=== PATIENT | male | born 1955 | race Caucasian/White ===

== ENCOUNTER 2021-01-25 12:08 | Inpatient (IN) | payer MEDICARE, OTHER ==
[~2021-01-25] VITALS: Ht 167.6 cm; Wt 72.6 kg
[2021-01-25 12:53] LABS: HEMATOCRIT 42.4 % (42-54); MEAN CORPUSCULAR HEMOGLOBIN 30.3 pg (27.0-33.0); MEAN CORPUSCULAR HGB CONC 33.5 g/dL (32.0-36.0); MEAN CORPUSCULAR VOLUME 90.4 fL (79-99); RED BLOOD CELL COUNT(AUTO) 4.69 MIL/uL (4.50-6.20); RED CELL DISTRIBUTION WIDTH 13.3 % (11.0-15.5); WHITE BLOOD COUNT (AUTO) 9.5 K/uL (4.8-10.8)
[2021-01-25 12:56] LABS: ABG BASE EXCESS 0.8 mmol/L (-2.0-3.0); ABG HCO3 23.3 mmol/L (21.0-28.0); ABG OXYGEN SATURATION 85.4 % (95.0-99.0); ABG PCO2 32 mmHg (35-48)
[2021-01-25] MEDS ORDERED: ALBUTEROL INHALER 90MCG/INH IH PRN (13:00)
[2021-01-25] MEDS ORDERED: 0.9%NACL 1000ML 1,000 ML IV SCH (13:00)
[2021-01-25 13:02] LABS: CREATININE 1.5 mg/dL (0.5-1.5); POTASSIUM 3.9 mmol/L (3.5-5.1)
[2021-01-25 13:06] LABS: ALBUMIN 2.8 g/dL (3.5-5.0); BILIRUBIN,TOTAL 0.4 mg/dL (0.2-1.0); TOTAL PROTEIN, SERUM 7.3 g/dL (6.0-8.3)
[2021-01-25 13:14] LABS: CRP QUANTITATIVE 184.5 mg/L (0.00-9.0)
[2021-01-25 13:32] VITALS: BP 101/66
[2021-01-25] MEDS: ACETAMINOPHEN WITH CODEINE 1 TAB TAB PO PRN (13:32)
[2021-01-25] MEDS ORDERED: ALPR1TAB7 PO (14:26)
[2021-01-25] MEDS ORDERED: THYR300T PO (14:26)
[2021-01-25] MEDS ORDERED: ACETAMINOPHEN 325 MG TAB PO PRN (14:30)
[2021-01-25] MEDS ORDERED: MAG/ALUM/SIMETH 30 ML UDCUP PO PRN (14:30)
[2021-01-25] MEDS ORDERED: LACTULOSE 20 GM/30 ML UDCUP PO PRN (14:30)
[2021-01-25] MEDS ORDERED: DIPHENHYDRAMINE HCL 25 MG CAPSULE PO PRN (14:30)
[2021-01-25] MEDS ORDERED: NITROGLYCERIN 0.4 MG SL TAB SL PRN (14:30)
[2021-01-25] MEDS ORDERED: ACETAMINOPHEN WITH CODEINE 1 TAB TAB PO PRN (14:30)
[2021-01-25] MEDS: DEXAMETHASONE SOD PHOSPHATE 4 MG/ML 1ML VIAL IVP SCH (16:09)
[2021-01-25] MEDS: CEFTRIAXONE 1G VIAL IV SCH (16:09)
[2021-01-25] MEDS: 0.9%NACL 1000ML 1,000 ML IV SCH (16:09)
[2021-01-25] MEDS: DOXYCYCLINE 100MG+NS 250ML 250 ML IV SCH (16:09)
[2021-01-25] MEDS ORDERED: PHARMACY COMMUNICATION MISC SCH (18:00)
[2021-01-25 18:12] VITALS: BP 108/72
[2021-01-25] MEDS ORDERED: REMDESIVIR (EUA) 520 200 MG in 0.9% NACL 250ML 250 ML IV ONE (20:00)
[2021-01-25] MEDS ORDERED: COMPOUND IV REFRIGERATED 1 EACH IVSOLN MISC PRN (20:00)
[2021-01-25] MEDS: FAMOTIDINE 20MG VIAL IV SCH (21:18)
[2021-01-25] MEDS: ALPRAZOLAM 1 MG TAB PO SCH (21:19)
[2021-01-25] MEDS: ENOXAPARIN SODIUM 40 MG/0.4 ML SYRINGE SQ SCH (22:07)
[2021-01-25 22:30] VITALS: BP 100/69
[2021-01-26 02:13] VITALS: BP 99/66
[2021-01-26] MEDS: 0.9%NACL 1000ML 1,000 ML IV SCH ×2 (02:27→14:32)
[2021-01-26] MEDS: DOXYCYCLINE 100MG+NS 250ML 250 ML IV SCH ×2 (02:27→14:30)
[2021-01-26 03:47] LABS: APPEARANCE,URINE Clear (CLEAR); BILIRUBIN,URINE Negative (NEGATIVE); COLOR,URINE Dark Yellow (YELLOW); GLUCOSE, URINE (UA) Negative (NEGATIVE); KETONES,URINE 15 mg/dL (NEGATIVE); LEUKOCYTE ESTERASE ,URINE Negative (NEGATIVE); NITRATE,URINE Negative (NEGATIVE); OCCULT BLOOD,URINE Negative (NEGATIVE); PROTEIN,URINE POS 2+ mg/dL (NEGATIVE)
[2021-01-26 04:01] VITALS: BP 105/65
[2021-01-26 04:03] LABS: BACTERIA,URINE Few /HPF (None Seen); RBC,URINE 0-1 /HPF (0-1); SQUAMOUS EPITHELIAL CELL,UR 0-2 /HPF (0-2)
[2021-01-26] MEDS: REMDESIVIR LABS MISC SCH (06:34)
[2021-01-26] MEDS: GUAIFENESIN-DM 200/20 MG 10 ML PO PRN ×2 (06:34→16:46)
[2021-01-26] MEDS: ACETAMINOPHEN WITH CODEINE 1 TAB TAB PO PRN ×2 (06:35→16:47)
[2021-01-26 06:50] LABS: BASOPHILS % (AUTO) 0.2 % (0.0-5.0); HEMATOCRIT 39.1 % (42-54); LYMPHOCYTES % (AUTO) 6.2 % (21.0-51.0); MEAN CORPUSCULAR HEMOGLOBIN 29.9 pg (27.0-33.0); MEAN CORPUSCULAR VOLUME 90.7 fL (79-99); MONOCYTES % (AUTO) 2.4 % (3.0-13.0); NEUTROPHILS % (AUTO) 90.2 % (40.0-77.0); PLATELET COUNT (AUTO) 420 K/uL (130-400); RED BLOOD CELL COUNT(AUTO) 4.31 MIL/uL (4.50-6.20); RED CELL DISTRIBUTION WIDTH 13.5 % (11.0-15.5); WHITE BLOOD COUNT (AUTO) 10.2 K/uL (4.8-10.8)
[2021-01-26 06:52] VITALS: BP 99/62
[2021-01-26 07:02] LABS: INR 0.98 (0.85-1.15); PROTHROMBIN TIME 10.7 SEC (9.6-11.6)
[2021-01-26 07:03] LABS: PARTIAL THROMBOPLASTIN TIME 31.9 SEC (26.3-35.5)
[2021-01-26 08:00] VITALS: BP 93/62
[2021-01-26] MEDS ORDERED: ENOXAPARIN SODIUM 40 MG/0.4 ML SYRINGE SQ SCH (09:00)
[2021-01-26 09:06] LABS: ALBUMIN 2.4 g/dL (3.5-5.0); BILIRUBIN,TOTAL 0.3 mg/dL (0.2-1.0); CREATININE 1.3 mg/dL (0.5-1.5); POTASSIUM 4.9 mmol/L (3.5-5.1)
[2021-01-26] MEDS: ASCORBIC ACID 500 MG TAB PO SCH (09:55)
[2021-01-26] MEDS: BARICITINIB (EUA) 2 MG TABLET PO SCH (09:55)
[2021-01-26] MEDS: ZINC SULFATE 220 CAPSULE PO SCH (09:56)
[2021-01-26] MEDS: ENOXAPARIN SODIUM 40 MG/0.4 ML SYRINGE SQ SCH ×2 (09:56→20:45)
[2021-01-26] MEDS: CEFTRIAXONE 1G VIAL IV SCH (14:31)
[2021-01-26] MEDS: DEXAMETHASONE SOD PHOSPHATE 4 MG/ML 1ML VIAL IVP SCH (14:31)
[2021-01-26] MEDS ORDERED: BUDESONIDE 0.5 MG/2 ML INH IH SCH (18:00)
[2021-01-26] MEDS ORDERED: FLUTICASONE/VILANTEROL 1 EACH AER.POW.BA IH SCH (19:00)
[2021-01-26 20:00] VITALS: BP 92/58
[2021-01-26] MEDS: ALPRAZOLAM 1 MG TAB PO SCH (20:44)
[2021-01-26] MEDS: FAMOTIDINE 20MG VIAL IV SCH (20:44)
[2021-01-26] MEDS: REMDESIVIR (EUA) 520 100 MG in 0.9% NACL 250ML 250 ML IV SCH (20:44)
[2021-01-26] MEDS ORDERED: TIMO1DRO OU (22:25)
[2021-01-26 23:12] VITALS: BP 112/62
[2021-01-27] MEDS ORDERED: 0.9% NACL 250ML 250 ML ONE (01:24)
[2021-01-27] MEDS: ACETAMINOPHEN WITH CODEINE 1 TAB TAB PO PRN ×2 (01:28→11:56)
[2021-01-27] MEDS: GUAIFENESIN-DM 200/20 MG 10 ML PO PRN (01:30)
[2021-01-27] MEDS: DOXYCYCLINE 100MG+NS 250ML 250 ML IV SCH ×2 (02:10→13:56)
[2021-01-27 04:16] VITALS: BP 100/64
[2021-01-27] MEDS: REMDESIVIR LABS MISC SCH (06:00)
[2021-01-27 06:16] LABS: BASOPHILS % (AUTO) 0.1 % (0.0-5.0); HEMATOCRIT 38.1 % (42-54); LYMPHOCYTES % (AUTO) 10.6 % (21.0-51.0); MEAN CORPUSCULAR HGB CONC 32.5 g/dL (32.0-36.0); MEAN CORPUSCULAR VOLUME 92.3 fL (79-99); MONOCYTES % (AUTO) 4.6 % (3.0-13.0); NEUTROPHILS % (AUTO) 83.5 % (40.0-77.0); PLATELET COUNT (AUTO) 473 K/uL (130-400); RED BLOOD CELL COUNT(AUTO) 4.13 MIL/uL (4.50-6.20); RED CELL DISTRIBUTION WIDTH 14.1 % (11.0-15.5); WHITE BLOOD COUNT (AUTO) 9.5 K/uL (4.8-10.8)
[2021-01-27 06:32] LABS: ALBUMIN 2.3 g/dL (3.5-5.0); BILIRUBIN,TOTAL 0.3 mg/dL (0.2-1.0); CREATININE 1.2 mg/dL (0.5-1.5); CRP QUANTITATIVE 95.1 mg/L (0.00-9.0); POTASSIUM 4.2 mmol/L (3.5-5.1); TOTAL PROTEIN, SERUM 6.4 g/dL (6.0-8.3)
[2021-01-27 07:15] VITALS: BP 100/68
[2021-01-27] MEDS: TIMOLOL MALEATE OU SCH ×2 (09:00→21:48)
[2021-01-27] MEDS: ASCORBIC ACID 500 MG TAB PO SCH (09:52)
[2021-01-27] MEDS: ZINC SULFATE 220 CAPSULE PO SCH (09:52)
[2021-01-27] MEDS: 0.9%NACL 1000ML 1,000 ML IV SCH (09:52)
[2021-01-27] MEDS: ENOXAPARIN SODIUM 40 MG/0.4 ML SYRINGE SQ SCH ×2 (09:53→21:39)
[2021-01-27] MEDS: FLUTICASONE/VILANTEROL 1 EACH AER.POW.BA IH SCH (10:07)
[2021-01-27 12:43] VITALS: BP 106/62
[2021-01-27] MEDS: BARICITINIB (EUA) 2 MG TABLET PO SCH (13:56)
[2021-01-27] MEDS: DEXAMETHASONE SOD PHOSPHATE 4 MG/ML 1ML VIAL IVP SCH (13:57)
[2021-01-27] MEDS: CEFTRIAXONE 1G VIAL IV SCH (13:57)
[2021-01-27 15:15] VITALS: BP 123/80
[2021-01-27] MEDS ORDERED: HYDROMORPHONE 0.5 MG SYG (0.5MG/0.5ML) IVP PRN (17:00)
[2021-01-27 20:29] VITALS: BP 117/74
[2021-01-27] MEDS: BUSPIRONE HCL 5 MG TABLET PO SCH (21:39)
[2021-01-27] MEDS: ALPRAZOLAM 1 MG TAB PO SCH (21:39)
[2021-01-27] MEDS: FAMOTIDINE 20MG VIAL IV SCH (21:40)
[2021-01-27] MEDS: REMDESIVIR (EUA) 520 100 MG in 0.9% NACL 250ML 250 ML IV SCH (21:55)
[2021-01-27 23:45] VITALS: BP 107/69
[2021-01-28 04:52] VITALS: BP 111/77
[2021-01-28 04:52] LABS: BASOPHILS % (AUTO) 0.1 % (0.0-5.0); HEMATOCRIT 35.9 % (42-54); MEAN CORPUSCULAR HGB CONC 32.3 g/dL (32.0-36.0); MEAN CORPUSCULAR VOLUME 92.8 fL (79-99); MONOCYTES % (AUTO) 4.5 % (3.0-13.0); NEUTROPHILS % (AUTO) 88.4 % (40.0-77.0); PLATELET COUNT (AUTO) 509 K/uL (130-400); RED BLOOD CELL COUNT(AUTO) 3.87 MIL/uL (4.50-6.20); RED CELL DISTRIBUTION WIDTH 14.4 % (11.0-15.5); WHITE BLOOD COUNT (AUTO) 11.5 K/uL (4.8-10.8)
[2021-01-28] MEDS: DOXYCYCLINE 100MG+NS 250ML 250 ML IV SCH ×2 (05:06→14:37)
[2021-01-28 05:16] LABS: ALBUMIN 2.2 g/dL (3.5-5.0); BILIRUBIN,TOTAL 0.4 mg/dL (0.2-1.0); CREATININE 1.1 mg/dL (0.5-1.5); CRP QUANTITATIVE 46.7 mg/L (0.00-9.0); POTASSIUM 4.7 mmol/L (3.5-5.1); TOTAL PROTEIN, SERUM 5.9 g/dL (6.0-8.3)
[2021-01-28] MEDS: REMDESIVIR LABS MISC SCH (06:00)
[2021-01-28 08:05] VITALS: BP 143/76
[2021-01-28] MEDS: TIMOLOL MALEATE OU SCH ×2 (09:00→20:31)
[2021-01-28] MEDS: FLUTICASONE/VILANTEROL 1 EACH AER.POW.BA IH SCH (09:00)
[2021-01-28] MEDS: BARICITINIB (EUA) 2 MG TABLET PO SCH (09:16)
[2021-01-28] MEDS: ZINC SULFATE 220 CAPSULE PO SCH (09:16)
[2021-01-28] MEDS: BUSPIRONE HCL 5 MG TABLET PO SCH ×2 (09:16→20:30)
[2021-01-28] MEDS: ASCORBIC ACID 500 MG TAB PO SCH (09:16)
[2021-01-28] MEDS: ENOXAPARIN SODIUM 40 MG/0.4 ML SYRINGE SQ SCH ×2 (09:17→20:31)
[2021-01-28 11:46] VITALS: BP 141/73
[2021-01-28] MEDS: DEXAMETHASONE SOD PHOSPHATE 4 MG/ML 1ML VIAL IVP SCH (14:38)
[2021-01-28] MEDS: CEFTRIAXONE 1G VIAL IV SCH (14:38)
[2021-01-28] MEDS: ACETAMINOPHEN WITH CODEINE 1 TAB TAB PO PRN ×3 (15:41→22:50)
[2021-01-28 16:18] VITALS: BP 105/68
[2021-01-28 20:00] VITALS: BP 111/65
[2021-01-28] MEDS: ALPRAZOLAM 1 MG TAB PO SCH (20:30)
[2021-01-28] MEDS: FAMOTIDINE 20MG VIAL IV SCH (20:30)
[2021-01-28] MEDS: REMDESIVIR (EUA) 520 100 MG in 0.9% NACL 250ML 250 ML IV SCH (20:30)
[2021-01-28] MEDS: GUAIFENESIN-DM 200/20 MG 10 ML PO PRN (20:59)
[2021-01-29] VITALS (7 sets, daily range): BP systolic 99–140; BP diastolic 61–82
[2021-01-29] MEDS: DOXYCYCLINE 100MG+NS 250ML 250 ML IV SCH ×2 (01:13→14:57)
[2021-01-29 04:48] LABS: ALBUMIN 2.2 g/dL (3.5-5.0); BILIRUBIN,DIRECT 0.2 mg/dL (0.0-0.3); BILIRUBIN,TOTAL 0.5 mg/dL (0.2-1.0); CREATININE 1.2 mg/dL (0.5-1.5)
[2021-01-29] MEDS: REMDESIVIR LABS MISC SCH (06:00)
[2021-01-29] MEDS: ZINC SULFATE 220 CAPSULE PO SCH (08:56)
[2021-01-29] MEDS: ASCORBIC ACID 500 MG TAB PO SCH (08:56)
[2021-01-29] MEDS: BARICITINIB (EUA) 2 MG TABLET PO SCH (08:56)
[2021-01-29] MEDS: BUSPIRONE HCL 5 MG TABLET PO SCH ×2 (08:56→20:25)
[2021-01-29] MEDS: ENOXAPARIN SODIUM 40 MG/0.4 ML SYRINGE SQ SCH ×2 (08:57→20:26)
[2021-01-29] MEDS: FLUTICASONE/VILANTEROL 1 EACH AER.POW.BA IH SCH (08:57)
[2021-01-29] MEDS: TIMOLOL MALEATE OU SCH ×2 (09:00→20:37)
[2021-01-29] MEDS: DEXAMETHASONE SOD PHOSPHATE 4 MG/ML 1ML VIAL IVP SCH (14:57)
[2021-01-29] MEDS: CEFTRIAXONE 1G VIAL IV SCH (14:57)
[2021-01-29] MEDS: SOLU-MEDROL 40MG VIAL IVP SCH (20:25)
[2021-01-29] MEDS: FAMOTIDINE 20MG VIAL IV SCH (20:25)
[2021-01-29] MEDS: ALPRAZOLAM 1 MG TAB PO SCH (20:25)
[2021-01-29] MEDS: REMDESIVIR (EUA) 520 100 MG in 0.9% NACL 250ML 250 ML IV SCH (20:26)
[2021-01-29] MEDS: GUAIFENESIN-DM 200/20 MG 10 ML PO PRN (21:22)
[2021-01-30] MEDS: DOXYCYCLINE 100MG+NS 250ML 250 ML IV SCH ×2 (02:18→14:36)
[2021-01-30 04:00] VITALS: BP 117/75
[2021-01-30 06:37] LABS: HEMATOCRIT 37.1 % (42-54); MEAN CORPUSCULAR HEMOGLOBIN 30.2 pg (27.0-33.0); MEAN CORPUSCULAR HGB CONC 33.4 g/dL (32.0-36.0); MEAN CORPUSCULAR VOLUME 90.5 fL (79-99); RED BLOOD CELL COUNT(AUTO) 4.1 MIL/uL (4.50-6.20); RED CELL DISTRIBUTION WIDTH 14.2 % (11.0-15.5); WHITE BLOOD COUNT (AUTO) 8.9 K/uL (4.8-10.8)
[2021-01-30 06:47] LABS: MAGNESIUM 2.3 mg/dL (1.80-2.40); POTASSIUM 4.3 mmol/L (3.5-5.1)
[2021-01-30 08:00] VITALS: BP 103/66
[2021-01-30] MEDS: GUAIFENESIN-DM 200/20 MG 10 ML PO PRN (08:13)
[2021-01-30] MEDS: SOLU-MEDROL 40MG VIAL IVP SCH ×2 (08:13→19:56)
[2021-01-30] MEDS: ENOXAPARIN SODIUM 40 MG/0.4 ML SYRINGE SQ SCH ×2 (08:14→19:56)
[2021-01-30] MEDS: BUSPIRONE HCL 5 MG TABLET PO SCH (08:14)
[2021-01-30] MEDS: ZINC SULFATE 220 CAPSULE PO SCH (08:14)
[2021-01-30] MEDS: FLUTICASONE/VILANTEROL 1 EACH AER.POW.BA IH SCH (08:14)
[2021-01-30] MEDS: ASCORBIC ACID 500 MG TAB PO SCH (08:14)
[2021-01-30] MEDS: BARICITINIB (EUA) 2 MG TABLET PO SCH (08:14)
[2021-01-30] MEDS: TIMOLOL MALEATE OU SCH ×2 (08:15→20:23)
[2021-01-30] MEDS: ACETAMINOPHEN WITH CODEINE 1 TAB TAB PO PRN (10:00)
[2021-01-30 12:00] VITALS: BP 126/80
[2021-01-30] MEDS: ALPRAZOLAM 1 MG TAB PO PRN ×2 (13:06→20:22)
[2021-01-30] MEDS: CEFTRIAXONE 1G VIAL IV SCH (14:36)
[2021-01-30 16:00] VITALS: BP 121/75
[2021-01-30] MEDS: BUDESONIDE 0.5 MG/2 ML INH IH SCH (18:00)
[2021-01-30] MEDS: FAMOTIDINE 20MG VIAL IV SCH (19:56)
[2021-01-30 20:16] VITALS: BP 101/68
[2021-01-30 23:35] VITALS: BP 116/79
[2021-01-31] MEDS: BUDESONIDE 0.5 MG/2 ML INH IH SCH (03:26)
[2021-01-31] MEDS: DOXYCYCLINE 100MG+NS 250ML 250 ML IV SCH ×2 (03:26→13:50)
[2021-01-31 04:00] VITALS: BP 115/72
[2021-01-31 05:39] LABS: CRP QUANTITATIVE 120.9 mg/L (0.00-9.0); POTASSIUM 4.2 mmol/L (3.5-5.1)
[2021-01-31 08:00] VITALS: BP 117/80
[2021-01-31] MEDS: ZINC SULFATE 220 CAPSULE PO SCH (08:45)
[2021-01-31] MEDS: SOLU-MEDROL 40MG VIAL IVP SCH ×2 (08:45→20:52)
[2021-01-31] MEDS: ASCORBIC ACID 500 MG TAB PO SCH (08:46)
[2021-01-31] MEDS: BARICITINIB (EUA) 2 MG TABLET PO SCH (08:46)
[2021-01-31] MEDS: ENOXAPARIN SODIUM 40 MG/0.4 ML SYRINGE SQ SCH (08:46)
[2021-01-31] MEDS: GLUTATHIONE PO SCH (09:00)
[2021-01-31] MEDS: FLUTICASONE/VILANTEROL 1 EACH AER.POW.BA IH SCH (09:30)
[2021-01-31] MEDS: TIMOLOL MALEATE OU SCH ×2 (09:30→21:00)
[2021-01-31] MEDS: GUAIFENESIN-DM 200/20 MG 10 ML PO PRN ×2 (10:07→16:44)
[2021-01-31 11:58] VITALS: BP 109/72
[2021-01-31] MEDS: CEFTRIAXONE 1G VIAL IV SCH (13:50)
[2021-01-31 16:33] VITALS: BP 129/68
[2021-01-31] MEDS: ACETAMINOPHEN WITH CODEINE 1 TAB TAB PO PRN (16:57)
[2021-01-31 20:00] VITALS: BP 94/62
[2021-01-31] MEDS: FAMOTIDINE 20MG VIAL IV SCH (20:52)
[2021-01-31] MEDS: ENOXAPARIN SODIUM 80 MG/0.8 ML SQ SCH (20:54)
[2021-01-31] MEDS: ALPRAZOLAM 1 MG TAB PO PRN (23:51)
[2021-01-31 23:54] VITALS: BP 119/73
[2021-02-01] MEDS: ACETAMINOPHEN WITH CODEINE 1 TAB TAB PO PRN ×3 (00:02→19:47)
[2021-02-01] MEDS: GUAIFENESIN-DM 200/20 MG 10 ML PO PRN (00:07)
[2021-02-01] MEDS: DOXYCYCLINE 100MG+NS 250ML 250 ML IV SCH ×2 (03:13→14:05)
[2021-02-01 04:00] VITALS: BP 150/51
[2021-02-01 05:21] LABS: BASOPHILS % (AUTO) 0.1 % (0.0-5.0); HEMATOCRIT 33.6 % (42-54); LYMPHOCYTES % (AUTO) 3.3 % (21.0-51.0); MEAN CORPUSCULAR HEMOGLOBIN 30.1 pg (27.0-33.0); MEAN CORPUSCULAR HGB CONC 33.3 g/dL (32.0-36.0); MEAN CORPUSCULAR VOLUME 90.3 fL (79-99); MONOCYTES % (AUTO) 4.4 % (3.0-13.0); NEUTROPHILS % (AUTO) 91.5 % (40.0-77.0); PLATELET COUNT (AUTO) 354 K/uL (130-400); RED BLOOD CELL COUNT(AUTO) 3.72 MIL/uL (4.50-6.20); RED CELL DISTRIBUTION WIDTH 14.2 % (11.0-15.5); WHITE BLOOD COUNT (AUTO) 12.8 K/uL (4.8-10.8)
[2021-02-01 05:31] LABS: POTASSIUM 4.5 mmol/L (3.5-5.1)
[2021-02-01 07:35] VITALS: BP 89/52
[2021-02-01] MEDS: SOLU-MEDROL 40MG VIAL IVP SCH ×2 (08:05→19:44)
[2021-02-01] MEDS: ZINC SULFATE 220 CAPSULE PO SCH (08:06)
[2021-02-01] MEDS: BARICITINIB (EUA) 2 MG TABLET PO SCH (08:06)
[2021-02-01] MEDS: ENOXAPARIN SODIUM 80 MG/0.8 ML SQ SCH ×2 (08:06→19:47)
[2021-02-01] MEDS: ASCORBIC ACID 500 MG TAB PO SCH (08:17)
[2021-02-01] MEDS: TIMOLOL MALEATE OU SCH ×2 (09:00→21:00)
[2021-02-01] MEDS: GLUTATHIONE PO SCH (09:00)
[2021-02-01] MEDS: FLUTICASONE/VILANTEROL 1 EACH AER.POW.BA IH SCH (09:07)
[2021-02-01 11:53] VITALS: BP 114/74
[2021-02-01] MEDS: GUAIFENESIN-DM 200/20 MG 10 ML PO SCH ×3 (14:01→21:00)
[2021-02-01] MEDS: ALPRAZOLAM 1 MG TAB PO PRN (14:02)
[2021-02-01] MEDS: CEFTRIAXONE 1G VIAL IV SCH (14:05)
[2021-02-01 15:40] VITALS: BP 98/66
[2021-02-01] MEDS: FAMOTIDINE 20MG VIAL IV SCH (19:44)
[2021-02-01 20:00] VITALS: BP 103/65
[2021-02-01] MEDS ORDERED: ALPRAZOLAM 1 MG TAB ONE (22:38)
[2021-02-01] MEDS ORDERED: ALPRAZOLAM 1 MG TAB PO ONE (23:00)
[2021-02-02] VITALS: BP 107/72
[2021-02-02] MEDS: DOXYCYCLINE 100MG+NS 250ML 250 ML IV SCH ×2 (01:11→15:08)
[2021-02-02] MEDS: GUAIFENESIN-DM 200/20 MG 10 ML PO SCH ×6 (01:11→19:57)
[2021-02-02 04:00] VITALS: BP 119/69
[2021-02-02 05:22] LABS: BASOPHILS % (AUTO) 0.1 % (0.0-5.0); HEMATOCRIT 33.2 % (42-54); LYMPHOCYTES % (AUTO) 3.3 % (21.0-51.0); MEAN CORPUSCULAR HEMOGLOBIN 30.5 pg (27.0-33.0); MEAN CORPUSCULAR HGB CONC 33.4 g/dL (32.0-36.0); MEAN CORPUSCULAR VOLUME 91.2 fL (79-99); MONOCYTES % (AUTO) 4.8 % (3.0-13.0); PLATELET COUNT (AUTO) 364 K/uL (130-400); RED BLOOD CELL COUNT(AUTO) 3.64 MIL/uL (4.50-6.20); RED CELL DISTRIBUTION WIDTH 14.2 % (11.0-15.5); WHITE BLOOD COUNT (AUTO) 12.4 K/uL (4.8-10.8)
[2021-02-02 05:35] LABS: BILIRUBIN,TOTAL 0.5 mg/dL (0.2-1.0); CREATININE 1.1 mg/dL (0.5-1.5); POTASSIUM 4.5 mmol/L (3.5-5.1); TOTAL PROTEIN, SERUM 5.7 g/dL (6.0-8.3)
[2021-02-02 08:00] VITALS: BP 116/73
[2021-02-02] MEDS: GLUTATHIONE PO SCH (09:00)
[2021-02-02] MEDS: TIMOLOL MALEATE OU SCH ×2 (09:00→19:40)
[2021-02-02] MEDS: FLUTICASONE/VILANTEROL 1 EACH AER.POW.BA IH SCH (09:00)
[2021-02-02] MEDS: SOLU-MEDROL 40MG VIAL IVP SCH ×2 (09:43→19:39)
[2021-02-02] MEDS: BUSPIRONE HCL 5 MG TABLET PO SCH ×2 (09:43→19:39)
[2021-02-02] MEDS: BARICITINIB (EUA) 2 MG TABLET PO SCH (09:44)
[2021-02-02] MEDS: ASCORBIC ACID 500 MG TAB PO SCH (09:44)
[2021-02-02] MEDS: ENOXAPARIN SODIUM 80 MG/0.8 ML SQ SCH ×2 (09:45→19:38)
[2021-02-02] MEDS: ACETAMINOPHEN WITH CODEINE 1 TAB TAB PO PRN ×3 (09:46→19:39)
[2021-02-02 12:05] VITALS: BP 99/71
[2021-02-02] MEDS: ZINC SULFATE 220 CAPSULE PO SCH (15:08)
[2021-02-02] MEDS: CEFTRIAXONE 1G VIAL IV SCH (15:08)
[2021-02-02 16:01] VITALS: BP_SYST 115; BP_SYST 118; BP_DIAS 57; BP_DIAS 60
[2021-02-02] MEDS: FAMOTIDINE 20MG VIAL IV SCH (19:39)
[2021-02-02 19:59] VITALS: BP 97/64
[2021-02-03] VITALS: BP 112/71
[2021-02-03] MEDS: GUAIFENESIN-DM 200/20 MG 10 ML PO SCH ×6 (00:44→20:24)
[2021-02-03] MEDS: DOXYCYCLINE 100MG+NS 250ML 250 ML IV SCH ×2 (02:15→13:16)
[2021-02-03 04:00] VITALS: BP 109/66
[2021-02-03] MEDS: ACETAMINOPHEN WITH CODEINE 1 TAB TAB PO PRN ×2 (04:44→16:22)
[2021-02-03 05:28] LABS: BASOPHILS % (AUTO) 0.2 % (0.0-5.0); HEMATOCRIT 35.4 % (42-54); LYMPHOCYTES % (AUTO) 4.3 % (21.0-51.0); MEAN CORPUSCULAR HEMOGLOBIN 30.3 pg (27.0-33.0); MEAN CORPUSCULAR HGB CONC 33.3 g/dL (32.0-36.0); NEUTROPHILS % (AUTO) 90.3 % (40.0-77.0); PLATELET COUNT (AUTO) 365 K/uL (130-400); RED BLOOD CELL COUNT(AUTO) 3.89 MIL/uL (4.50-6.20); RED CELL DISTRIBUTION WIDTH 13.9 % (11.0-15.5); WHITE BLOOD COUNT (AUTO) 11.4 K/uL (4.8-10.8)
[2021-02-03 06:12] LABS: ALBUMIN 2.1 g/dL (3.5-5.0); BILIRUBIN,TOTAL 0.5 mg/dL (0.2-1.0); CREATININE 1.1 mg/dL (0.5-1.5); TOTAL PROTEIN, SERUM 5.8 g/dL (6.0-8.3)
[2021-02-03] MEDS: ASCORBIC ACID 500 MG TAB PO SCH (07:38)
[2021-02-03] MEDS: ZINC SULFATE 220 CAPSULE PO SCH (07:38)
[2021-02-03] MEDS: BUSPIRONE HCL 5 MG TABLET PO SCH ×2 (07:38→16:23)
[2021-02-03] MEDS: ENOXAPARIN SODIUM 80 MG/0.8 ML SQ SCH ×2 (07:39→20:33)
[2021-02-03] MEDS: SOLU-MEDROL 40MG VIAL IVP SCH ×2 (07:39→20:22)
[2021-02-03] MEDS: TIMOLOL MALEATE OU SCH ×2 (07:58→20:36)
[2021-02-03] MEDS: GLUTATHIONE PO SCH (07:58)
[2021-02-03 08:00] VITALS: BP 106/67
[2021-02-03] MEDS: BARICITINIB (EUA) 2 MG TABLET PO SCH (08:40)
[2021-02-03 11:25] VITALS: BP 101/62
[2021-02-03] MEDS: CEFTRIAXONE 1G VIAL IV SCH (13:16)
[2021-02-03 16:50] VITALS: BP 102/61
[2021-02-03 19:40] VITALS: BP 104/69
[2021-02-03] MEDS: FAMOTIDINE 20MG VIAL IV SCH (20:22)
[2021-02-03] MEDS: ZOLPIDEM TARTRATE 5 MG TAB PO SCH (20:22)
[2021-02-04] VITALS (7 sets, daily range): BP systolic 95–132; BP diastolic 57–82
[2021-02-04] MEDS ORDERED: 0.9% NACL 250ML 250 ML ONE (00:49)
[2021-02-04] MEDS: DOXYCYCLINE 100MG+NS 250ML 250 ML IV SCH (00:59)
[2021-02-04] MEDS: BUSPIRONE HCL 5 MG TABLET PO SCH ×3 (00:59→16:25)
[2021-02-04] MEDS: GUAIFENESIN-DM 200/20 MG 10 ML PO SCH ×6 (00:59→20:52)
[2021-02-04] MEDS: ONDANSETRON 4MG INJ IV PRN ×2 (03:37→20:57)
[2021-02-04 04:34] LABS: BASOPHILS % (AUTO) 0.1 % (0.0-5.0); HEMATOCRIT 34.4 % (42-54); LYMPHOCYTES % (AUTO) 4.3 % (21.0-51.0); MEAN CORPUSCULAR HEMOGLOBIN 30.4 pg (27.0-33.0); MEAN CORPUSCULAR VOLUME 89.4 fL (79-99); MONOCYTES % (AUTO) 4.6 % (3.0-13.0); NEUTROPHILS % (AUTO) 89.7 % (40.0-77.0); PLATELET COUNT (AUTO) 364 K/uL (130-400); RED BLOOD CELL COUNT(AUTO) 3.85 MIL/uL (4.50-6.20); RED CELL DISTRIBUTION WIDTH 13.6 % (11.0-15.5); WHITE BLOOD COUNT (AUTO) 13.2 K/uL (4.8-10.8)
[2021-02-04] MEDS: ACETAMINOPHEN WITH CODEINE 1 TAB TAB PO PRN ×2 (04:34→16:26)
[2021-02-04 04:59] LABS: ALBUMIN 2.2 g/dL (3.5-5.0); BILIRUBIN,TOTAL 0.4 mg/dL (0.2-1.0); CREATININE 1.1 mg/dL (0.5-1.5); POTASSIUM 4.1 mmol/L (3.5-5.1); TOTAL PROTEIN, SERUM 5.7 g/dL (6.0-8.3)
[2021-02-04] MEDS: ZINC SULFATE 220 CAPSULE PO SCH (07:30)
[2021-02-04] MEDS: BARICITINIB (EUA) 2 MG TABLET PO SCH (07:30)
[2021-02-04] MEDS: ASCORBIC ACID 500 MG TAB PO SCH (07:30)
[2021-02-04] MEDS: SOLU-MEDROL 40MG VIAL IVP SCH (07:31)
[2021-02-04] MEDS: TIMOLOL MALEATE OU SCH ×2 (07:32→19:51)
[2021-02-04] MEDS: ENOXAPARIN SODIUM 80 MG/0.8 ML SQ SCH ×2 (07:32→19:48)
[2021-02-04] MEDS: GLUTATHIONE PO SCH (08:42)
[2021-02-04] MEDS: DOXYCYCLINE HYCLATE 100 MG TABLET PO SCH ×2 (13:32→19:47)
[2021-02-04] MEDS: CEFTRIAXONE 1G VIAL IV SCH (13:32)
[2021-02-04] MEDS: DEXAMETHASONE SOD PHOSPHATE 4 MG/ML 1ML VIAL IVP SCH (17:47)
[2021-02-04] MEDS: FAMOTIDINE 20MG VIAL IV SCH (19:46)
[2021-02-04] MEDS: ZOLPIDEM TARTRATE 5 MG TAB PO SCH (19:47)
[2021-02-05] MEDS: BUSPIRONE HCL 5 MG TABLET PO SCH ×4 (00:35→23:51)
[2021-02-05] MEDS: GUAIFENESIN-DM 200/20 MG 10 ML PO SCH ×7 (00:35→23:51)
[2021-02-05 03:47] VITALS: BP 112/69
[2021-02-05 04:51] LABS: BASOPHILS % (AUTO) 0.1 % (0.0-5.0); EOSINOPHILS % (AUTO) 0.1 % (0.0-8.0); HEMATOCRIT 35.1 % (42-54); LYMPHOCYTES % (AUTO) 6.4 % (21.0-51.0); MEAN CORPUSCULAR HEMOGLOBIN 29.9 pg (27.0-33.0); MEAN CORPUSCULAR HGB CONC 32.8 g/dL (32.0-36.0); MEAN CORPUSCULAR VOLUME 91.2 fL (79-99); MONOCYTES % (AUTO) 7.1 % (3.0-13.0); NEUTROPHILS % (AUTO) 84.7 % (40.0-77.0); PLATELET COUNT (AUTO) 357 K/uL (130-400); RED BLOOD CELL COUNT(AUTO) 3.85 MIL/uL (4.50-6.20); RED CELL DISTRIBUTION WIDTH 13.7 % (11.0-15.5); WHITE BLOOD COUNT (AUTO) 12.8 K/uL (4.8-10.8)
[2021-02-05 05:12] LABS: ALBUMIN 2.2 g/dL (3.5-5.0); BILIRUBIN,TOTAL 0.5 mg/dL (0.2-1.0); POTASSIUM 4.1 mmol/L (3.5-5.1); TOTAL PROTEIN, SERUM 5.6 g/dL (6.0-8.3)
[2021-02-05] MEDS: DEXAMETHASONE SOD PHOSPHATE 4 MG/ML 1ML VIAL IVP SCH (05:31)
[2021-02-05] MEDS: ASCORBIC ACID 500 MG TAB PO SCH (07:59)
[2021-02-05] MEDS: BARICITINIB (EUA) 2 MG TABLET PO SCH (07:59)
[2021-02-05] MEDS: DOXYCYCLINE HYCLATE 100 MG TABLET PO SCH ×2 (07:59→08:18)
[2021-02-05] MEDS: ZINC SULFATE 220 CAPSULE PO SCH (07:59)
[2021-02-05] MEDS: TIMOLOL MALEATE OU SCH ×2 (08:01→20:33)
[2021-02-05] MEDS: GLUTATHIONE PO SCH (08:01)
[2021-02-05] MEDS: ENOXAPARIN SODIUM 80 MG/0.8 ML SQ SCH ×2 (08:01→20:33)
[2021-02-05 08:21] VITALS: BP 119/69
[2021-02-05 11:00] VITALS: BP 111/70
[2021-02-05] MEDS ORDERED: PHARMACY COMMUNICATION MISC SCH (13:00)
[2021-02-05] MEDS: CEFTRIAXONE 1G VIAL IV SCH (13:43)
[2021-02-05 16:00] VITALS: BP 100/68
[2021-02-05] MEDS: LACTOBACILLUS RHAMNOSUS GG 1 EACH CAP.SPRINK PO SCH ×2 (16:43→20:33)
[2021-02-05] MEDS ORDERED: DEXAMETHASONE SOD PHOSPHATE 4 MG/ML 1ML VIAL IVP SCH (17:30)
[2021-02-05] MEDS ORDERED: SOLU-MEDROL 40MG VIAL ONE (19:22)
[2021-02-05 20:00] VITALS: BP 106/68
[2021-02-05] MEDS: FAMOTIDINE 20MG VIAL IV SCH (20:30)
[2021-02-05] MEDS: SOLU-MEDROL 40MG VIAL IVP SCH (20:32)
[2021-02-05] MEDS: ZOLPIDEM TARTRATE 5 MG TAB PO SCH (20:33)
[2021-02-05] MEDS: ACETAMINOPHEN WITH CODEINE 1 TAB TAB PO PRN (21:13)
[2021-02-06] VITALS: BP_SYST 102; BP_SYST 127; BP_DIAS 68; BP_DIAS 75
[2021-02-06 04:00] VITALS: BP 90/51
[2021-02-06] MEDS: GUAIFENESIN-DM 200/20 MG 10 ML PO SCH ×5 (04:12→20:52)
[2021-02-06 08:00] VITALS: BP 96/56
[2021-02-06] MEDS: LACTOBACILLUS RHAMNOSUS GG 1 EACH CAP.SPRINK PO SCH ×4 (08:27→20:52)
[2021-02-06] MEDS: SOLU-MEDROL 40MG VIAL IVP SCH ×2 (08:27→20:52)
[2021-02-06] MEDS: ASCORBIC ACID 500 MG TAB PO SCH (08:27)
[2021-02-06] MEDS: ZINC SULFATE 220 CAPSULE PO SCH (08:27)
[2021-02-06] MEDS: BUSPIRONE HCL 5 MG TABLET PO SCH ×2 (08:27→16:20)
[2021-02-06] MEDS: BARICITINIB (EUA) 2 MG TABLET PO SCH (08:27)
[2021-02-06] MEDS: ENOXAPARIN SODIUM 80 MG/0.8 ML SQ SCH ×2 (08:28→20:55)
[2021-02-06] MEDS: GLUTATHIONE PO SCH (09:00)
[2021-02-06] MEDS: TIMOLOL MALEATE OU SCH ×2 (09:17→20:55)
[2021-02-06 12:00] VITALS: BP 105/68
[2021-02-06] MEDS: CEFTRIAXONE 1G VIAL IV SCH (13:22)
[2021-02-06 16:00] VITALS: BP 105/66
[2021-02-06 20:00] VITALS: BP 108/65
[2021-02-06] MEDS: ZOLPIDEM TARTRATE 5 MG TAB PO SCH (20:52)
[2021-02-06] MEDS: FAMOTIDINE 20MG VIAL IV SCH (20:52)
[2021-02-07] VITALS: BP 93/66
[2021-02-07] MEDS: GUAIFENESIN-DM 200/20 MG 10 ML PO SCH ×6 (00:52→20:06)
[2021-02-07] MEDS: BUSPIRONE HCL 5 MG TABLET PO SCH ×3 (00:58→18:20)
[2021-02-07] MEDS: ACETAMINOPHEN WITH CODEINE 1 TAB TAB PO PRN ×2 (02:08→20:07)
[2021-02-07 04:00] VITALS: BP 119/69
[2021-02-07 05:48] LABS: BASOPHILS % (AUTO) 0.1 % (0.0-5.0); HEMATOCRIT 38.5 % (42-54); LYMPHOCYTES % (AUTO) 6.2 % (21.0-51.0); MEAN CORPUSCULAR HEMOGLOBIN 30.6 pg (27.0-33.0); MEAN CORPUSCULAR HGB CONC 33.5 g/dL (32.0-36.0); MEAN CORPUSCULAR VOLUME 91.2 fL (79-99); MONOCYTES % (AUTO) 4.3 % (3.0-13.0); NEUTROPHILS % (AUTO) 88.1 % (40.0-77.0); PLATELET COUNT (AUTO) 415 K/uL (130-400); RED BLOOD CELL COUNT(AUTO) 4.22 MIL/uL (4.50-6.20); WHITE BLOOD COUNT (AUTO) 12.5 K/uL (4.8-10.8)
[2021-02-07 06:14] LABS: CRP QUANTITATIVE 11.9 mg/L (0.00-9.0); POTASSIUM 4.1 mmol/L (3.5-5.1)
[2021-02-07 08:00] VITALS: BP 121/64
[2021-02-07] MEDS: SOLU-MEDROL 40MG VIAL IVP SCH ×2 (08:35→20:06)
[2021-02-07] MEDS: LACTOBACILLUS RHAMNOSUS GG 1 EACH CAP.SPRINK PO SCH ×4 (08:35→20:06)
[2021-02-07] MEDS: BARICITINIB (EUA) 2 MG TABLET PO SCH (08:35)
[2021-02-07] MEDS: ZINC SULFATE 220 CAPSULE PO SCH (08:35)
[2021-02-07] MEDS: ASCORBIC ACID 500 MG TAB PO SCH (08:35)
[2021-02-07] MEDS: ENOXAPARIN SODIUM 80 MG/0.8 ML SQ SCH ×2 (08:39→20:10)
[2021-02-07] MEDS: GLUTATHIONE PO SCH (08:42)
[2021-02-07] MEDS: TIMOLOL MALEATE OU SCH ×2 (08:43→21:00)
[2021-02-07 12:00] VITALS: BP 88/56
[2021-02-07 16:00] VITALS: BP 92/60
[2021-02-07 20:00] VITALS: BP 98/63
[2021-02-07] MEDS: ZOLPIDEM TARTRATE 5 MG TAB PO SCH (20:06)
[2021-02-07] MEDS: FAMOTIDINE 20MG VIAL IV SCH (20:06)
[2021-02-08] VITALS (7 sets, daily range): BP systolic 90–123; BP diastolic 49–75
[2021-02-08] MEDS: GUAIFENESIN-DM 200/20 MG 10 ML PO SCH ×6 (01:51→20:51)
[2021-02-08] MEDS: BUSPIRONE HCL 5 MG TABLET PO SCH ×3 (01:54→16:43)
[2021-02-08] MEDS: ACETAMINOPHEN WITH CODEINE 1 TAB TAB PO PRN ×2 (03:15→20:51)
[2021-02-08 04:48] LABS: BASOPHILS % (AUTO) 0.1 % (0.0-5.0); HEMATOCRIT 34.8 % (42-54); LYMPHOCYTES % (AUTO) 5.8 % (21.0-51.0); MEAN CORPUSCULAR HEMOGLOBIN 30.1 pg (27.0-33.0); MEAN CORPUSCULAR HGB CONC 32.5 g/dL (32.0-36.0); MEAN CORPUSCULAR VOLUME 92.8 fL (79-99); MONOCYTES % (AUTO) 3.5 % (3.0-13.0); NEUTROPHILS % (AUTO) 89.5 % (40.0-77.0); PLATELET COUNT (AUTO) 334 K/uL (130-400); RED BLOOD CELL COUNT(AUTO) 3.75 MIL/uL (4.50-6.20); RED CELL DISTRIBUTION WIDTH 14.3 % (11.0-15.5); WHITE BLOOD COUNT (AUTO) 10.7 K/uL (4.8-10.8)
[2021-02-08 04:54] LABS: POTASSIUM 4.7 mmol/L (3.5-5.1)
[2021-02-08] MEDS: GLUTATHIONE PO SCH (09:00)
[2021-02-08] MEDS: TIMOLOL MALEATE OU SCH ×2 (09:00→21:00)
[2021-02-08] MEDS: ASCORBIC ACID 500 MG TAB PO SCH (09:48)
[2021-02-08] MEDS: ZINC SULFATE 220 CAPSULE PO SCH (09:48)
[2021-02-08] MEDS: BARICITINIB (EUA) 2 MG TABLET PO SCH (09:48)
[2021-02-08] MEDS: LACTOBACILLUS RHAMNOSUS GG 1 EACH CAP.SPRINK PO SCH ×4 (09:48→20:53)
[2021-02-08] MEDS: ENOXAPARIN SODIUM 40 MG/0.4 ML SYRINGE SQ SCH ×2 (09:48→20:53)
[2021-02-08] MEDS: SOLU-MEDROL 40MG VIAL IVP SCH ×2 (09:49→20:55)
[2021-02-08] MEDS: PANTOPRAZOLE 40 MG TAB DR PO SCH (09:54)
[2021-02-08] MEDS: MIDODRINE HCL 5 MG TABLET PO SCH ×2 (13:16→20:53)
[2021-02-08] MEDS: ZOLPIDEM TARTRATE 5 MG TAB PO SCH (21:00)
[2021-02-09] MEDS: GUAIFENESIN-DM 200/20 MG 10 ML PO SCH ×5 (01:00→16:39)
[2021-02-09] MEDS: BUSPIRONE HCL 5 MG TABLET PO SCH ×3 (01:00→16:39)
[2021-02-09 04:00] VITALS: BP 104/71
[2021-02-09] MEDS: PANTOPRAZOLE 40 MG TAB DR PO SCH (06:26)
[2021-02-09 07:23] VITALS: BP 92/60
[2021-02-09 11:20] VITALS: BP 100/75
[2021-02-09] MEDS: LACTOBACILLUS RHAMNOSUS GG 1 EACH CAP.SPRINK PO SCH ×3 (11:20→16:39)
[2021-02-09] MEDS: BARICITINIB (EUA) 2 MG TABLET PO SCH (11:21)
[2021-02-09] MEDS: GLUTATHIONE PO SCH (11:22)
[2021-02-09] MEDS: TIMOLOL MALEATE OU SCH (11:23)
[2021-02-09] MEDS: ZINC SULFATE 220 CAPSULE PO SCH (11:23)
[2021-02-09] MEDS: SOLU-MEDROL 40MG VIAL IVP SCH (11:23)
[2021-02-09] MEDS: ASCORBIC ACID 500 MG TAB PO SCH (11:24)
[2021-02-09] MEDS: MIDODRINE HCL 5 MG TABLET PO SCH ×2 (11:24→14:41)
[2021-02-09] MEDS: ENOXAPARIN SODIUM 40 MG/0.4 ML SYRINGE SQ SCH (11:27)
[2021-02-09] MEDS: ACETAMINOPHEN WITH CODEINE 1 TAB TAB PO PRN (11:28)
[2021-02-09 12:03] LABS: BASOPHILS % (AUTO) 0.2 % (0.0-5.0); EOSINOPHILS % (AUTO) 0.1 % (0.0-8.0); HEMATOCRIT 37.9 % (42-54); LYMPHOCYTES % (AUTO) 4.9 % (21.0-51.0); MEAN CORPUSCULAR HEMOGLOBIN 30.3 pg (27.0-33.0); MEAN CORPUSCULAR HGB CONC 32.2 g/dL (32.0-36.0); MONOCYTES % (AUTO) 3.6 % (3.0-13.0); NEUTROPHILS % (AUTO) 90.1 % (40.0-77.0); PLATELET COUNT (AUTO) 406 K/uL (130-400); RED BLOOD CELL COUNT(AUTO) 4.03 MIL/uL (4.50-6.20); RED CELL DISTRIBUTION WIDTH 14.6 % (11.0-15.5); WHITE BLOOD COUNT (AUTO) 12.1 K/uL (4.8-10.8)
[2021-02-09 16:00] VITALS: BP 103/68
[2021-02-10] MEDS ORDERED: DEXAMETHASONE 4 MG TAB PO SCH (09:00)
== END 2021-02-09 20:48 | DRG 177 ==
LOC: EDH 12:08 → EDHIP 12:09 → 4AH 01-26 23:12 → 2DH 01-30 01:29 → 4AH 01-30 04:05
PROVIDERS: ADMIT Hospitalist; ATTEND Hospitalist
PROC: XW033E5 Introduction of Remdesivir Anti-infective into Peripheral Vein, Percutaneous Approach, New Technology Group 5 (ICD-10-PCS; principal; 2021-01-25)
PROC: XW0DXM6 Introduction of Baricitinib into Mouth and Pharynx, External Approach, New Technology Group 6 (ICD-10-PCS; 2021-01-26)
PROC: 5A09457 Assistance with Respiratory Ventilation, 24-96 Consecutive Hours, Continuous Positive Airway Pressure (ICD-10-PCS; 2021-01-27)
PROC: 5A09457 Assistance with Respiratory Ventilation, 24-96 Consecutive Hours, Continuous Positive Airway Pressure (ICD-10-PCS; 2021-01-27)
PROC: 5A0935A Assistance with Respiratory Ventilation, Less than 24 Consecutive Hours, High Flow/Velocity Cannula (ICD-10-PCS; 2021-01-27)
PROC: 5A0935A Assistance with Respiratory Ventilation, Less than 24 Consecutive Hours, High Flow/Velocity Cannula (ICD-10-PCS; 2021-02-02)
PROC: 5A0935A Assistance with Respiratory Ventilation, Less than 24 Consecutive Hours, High Flow/Velocity Cannula (ICD-10-PCS; 2021-02-03)
PROC: 5A0935A Assistance with Respiratory Ventilation, Less than 24 Consecutive Hours, High Flow/Velocity Cannula (ICD-10-PCS; 2021-02-04)
PROC: 5A0935A Assistance with Respiratory Ventilation, Less than 24 Consecutive Hours, High Flow/Velocity Cannula (ICD-10-PCS; 2021-02-05)
PROC: 5A0935A Assistance with Respiratory Ventilation, Less than 24 Consecutive Hours, High Flow/Velocity Cannula (ICD-10-PCS; 2021-02-06)
PROC: 5A0935A Assistance with Respiratory Ventilation, Less than 24 Consecutive Hours, High Flow/Velocity Cannula (ICD-10-PCS; 2021-02-07)
PROC: 5A0935A Assistance with Respiratory Ventilation, Less than 24 Consecutive Hours, High Flow/Velocity Cannula (ICD-10-PCS; 2021-02-08)
PROC: 5A0935A Assistance with Respiratory Ventilation, Less than 24 Consecutive Hours, High Flow/Velocity Cannula (ICD-10-PCS; 2021-02-09)
DX: U07.1 COVID-19 (principal); A41.9 Sepsis, unspecified organism; J12.82 Pneumonia due to coronavirus disease 2019; J80 Acute respiratory distress syndrome; E87.1 Hypo-osmolality and hyponatremia; E03.9 Hypothyroidism, unspecified; R74.01 Elevation of levels of liver transaminase levels; F41.1 Generalized anxiety disorder; R53.81 Other malaise; G89.29 Other chronic pain; F32.9 Major depressive disorder, single episode, unspecified; I10 Essential (primary) hypertension; E66.01 Morbid (severe) obesity due to excess calories; Z68.25 Body mass index [BMI] 25.0-25.9, adult; Z74.01 Bed confinement status
CPT/HCPCS: 36415; 36600; 71045; 80048; 80053; 80076; 81001; 82565; 82728; 82803; 82948; 83605; 83735; 83880; 84145; 84484; 85025; 85027; 85378; 85610; 85730; 86140; 87040; 87635; 87804; 87880; 93005; 93970; 94660; C9803; G0378; J0696; J1100; J1170; J1650; J2405; J2920; J3490; J7030; J7050; Q0163